=== PATIENT | female | born 1930 | race Caucasian/White ===

== ENCOUNTER 2020-03-01 16:15 | Inpatient (IN) | payer MEDICARE, OTHER ==
[2020-03-01] MEDS ORDERED: SODIUM CHLORIDE 0.9% 1,000 ML IV STA (17:02)
--- NOTE | 2020-03-01 17:11 | ED ---
General Adult HPI - General Chief complaint: Nausea/Vomiting/Diarrhea Stated complaint: Dehydration Time Seen by Provider: 03/01/20 16:40 Source: patient, family, RN notes reviewed Mode of arrival: ambulatory Limitations: no limitations - History of Present Illness Initial comments: Patient is a pleasant 89-year-old female presenting to the emergency department with concerns for dehydration. Patient does have diarrhea that has been worse for the past couple of weeks. Patient has a between 2 and 5 times per day. Daughter states this is a chronic problem for her and does see a primary care physician. Patient is in the process of being started on a new medication however they're trying to get preauthorization. Today patient was a little bit more weak than normal and did have a fall. No significant injury. No isolated area of weakness. No confusion. Patient and daughter are concerned regarding possible dehydration and would like fluids. No abdominal pain. No fever. No vomiting. Patient does have some decreased appetite - Related Data Allergies Allergy/AdvReac Type Severity Reaction Status Date / Time Sulfa (Sulfonamide Allergy Rash/Hives Verified 03/01/20 16:31 Antibiotics) Review of Systems ROS Statement: Those systems with pertinent positive or pertinent negative responses have been documented in the HPI. ROS Other: All systems not noted in ROS Statement are negative. Constitutional: Denies: fever Eyes: Denies: eye pain ENT: Denies: ear pain Respiratory: Denies: cough, dyspnea Cardiovascular: Denies: chest pain Endocrine: Reports: fatigue Gastrointestinal: Reports: nausea, diarrhea. Denies: abdominal pain, vomiting, constipation Genitourinary: Denies: dysuria Musculoskeletal: Denies: back pain Skin: Denies: rash Past Medical History Past Medical History: Hyperlipidemia Additional Past Medical History / Comment(s): parkinson's, hypotension, resltless legs History of Any Multi-Drug Resistant Organisms: None Reported Past Surgical History: Hysterectomy, Joint Replacement Additional Past Surgical History / Comment(s): L hip Past Psychological History: No Psychological Hx Reported Smoking Status: Never smoker Past Alcohol Use History: None Reported Past Drug Use History: None Reported General Exam Limitations: no limitations General appearance: alert, in no apparent distress Head exam: Present: normocephalic Eye exam: Present: normal appearance ENT exam: Present: normal oropharynx Neck exam: Present: normal inspection Respiratory exam: Present: normal lung sounds bilaterally Cardiovascular Exam: Present: regular rate, normal rhythm GI/Abdominal exam: Present: soft, normal bowel sounds. Absent: distended, tenderness, guarding, rebound, rigid, pulsatile mass Extremities exam: Present: normal inspection, full ROM Neurological exam: Present: alert. Absent: motor sensory deficit Expanded Motor strength exam: RUE: 5, LUE: 5, RLE: 5, LLE: 5 Psychiatric exam: Present: normal affect, normal mood Skin exam: Present: normal color Course Vital Signs 03/01/20 03/01/20 16:31 18:18 Temperature 98.2 F Pulse Rate 71 69 Respiratory 18 18 Rate Blood Pressure 110/52 O2 Sat by Pulse 92 L Oximetry Medical Decision Making - Medical Decision Making Patient reevaluated and resting comfortably in bed. Patient and family are unaware of any history of previous kidney problems. Case was discussed with , who will admit covering for hospital call. Patient and family are aware. - Lab Data Result diagrams: 03/01/20 18:08 03/01/20 18:08 Lab Results 03/01/20 03/01/20 Range/Units 18:08 18:08 WBC 5.1 (3.8-10.6) k/uL RBC 3.47 L (3.80-5.40) m/uL Hgb 10.7 L (11.4-16.0) gm/dL Hct 32.3 L (34.0-46.0) % MCV 92.9 (80.0-100.0) fL MCH 31.0 (25.0-35.0) pg MCHC 33.3 (31.0-37.0) g/dL RDW 12.7 (11.5-15.5) % Plt Count 144 L (150-450) k/uL Neutrophils % 67 % Lymphocytes % 9 % Monocytes % 6 % Eosinophils % 14 % Basophils % 0 % Neutrophils # 3.5 (1.3-7.7) k/uL Lymphocytes # 0.5 L (1.0-4.8) k/uL Monocytes # 0.3 (0-1.0) k/uL Eosinophils # 0.7 (0-0.7) k/uL Basophils # 0.0 (0-0.2) k/uL Sodium 140 (137-145) mmol/L Potassium 3.6 (3.5-5.1) mmol/L Chloride 111 H (98-107) mmol/L Carbon Dioxide 24 (22-30) mmol/L Anion Gap 5 mmol/L BUN 49 H (7-17) mg/dL Creatinine 1.62 H (0.52-1.04) mg/dL Est GFR (CKD-EPI)AfAm 33 (>60 ml/min/1.73 sqM) Est GFR (CKD-EPI)NonAf 28 (>60 ml/min/1.73 sqM) Glucose 103 H (74-99) mg/dL Calcium 9.1 (8.4-10.2) mg/dL Total Bilirubin 0.5 (0.2-1.3) mg/dL AST 22 (14-36) U/L ALT <6 (4-34) U/L Alkaline Phosphatase 48 (38-126) U/L Total Protein 6.2 L (6.3-8.2) g/dL Albumin 3.7 (3.5-5.0) g/dL Amylase 45 (30-110) U/L Lipase 50 (23-300) U/L Disposition Clinical Impression: Dehydration Disposition: ADMITTED IP TO THIS HOSP Is patient prescribed a controlled substance at d/c from ED?: No Referrals: Nonstaff,Physician [Primary Care Provider] - 1-2 days Decision Time: 19:12
[2020-03-01 18:15] LABS: Basophils % (A) 0 %; Eosinophils # (A) 0.7 k/uL (0-0.7); Eosinophils % (A) 14 %; HCT 32.3 % (34.0-46.0); HGB 10.7 gm/dL (11.4-16.0); Lymphocytes # (A) 0.5 k/uL (1.0-4.8); Lymphocytes % (A) 9 %; MCHC 33.3 g/dL (31.0-37.0); MCV 92.9 fL (80.0-100.0); Mean Platelet Volume 7.4; Monocytes # (A) 0.3 k/uL (0-1.0); Monocytes % (A) 6 %; Neutrophils # (A) 3.5 k/uL (1.3-7.7); Neutrophils % (A) 67 %; Platelet Count 144 k/uL (150-450); RBC 3.47 m/uL (3.80-5.40); RDW 12.7 % (11.5-15.5); WBC 5.1 k/uL (3.8-10.6)
[2020-03-01 18:25] LABS: ALT <6 U/L (4-34); AST 22 U/L (14-36); African American GFR (CKD) 33 (>60 ml/min/1.73 sqM); Albumin 3.7 g/dL (3.5-5.0); Alkaline Phosphatase 48 U/L (38-126); Amylase 45 U/L (30-110); Anion Gap 5 mmol/L; Blood Urea Nitrogen 49 mg/dL (7-17); Calcium 9.1 mg/dL (8.4-10.2); Carbon Dioxide 24 mmol/L (22-30); Chloride 111 mmol/L (98-107); Glucose 103 mg/dL (74-99); Non-African American GFR(CKD) 28 (>60 ml/min/1.73 sqM); Potassium 3.6 mmol/L (3.5-5.1); Sodium 140 mmol/L (137-145); Total Bilirubin 0.5 mg/dL (0.2-1.3); Total Protein 6.2 g/dL (6.3-8.2)
[2020-03-01] MEDS ORDERED: NALOXONE 0.4 MG/ML 1 ML VIAL IV PRN (19:13)
[2020-03-01] MEDS ORDERED: SODIUM CHLORIDE 0.9% 1,000 ML IV SCH (19:15)
--- NOTE | 2020-03-01 21:43 | P.HPIM ---
History of Present Illness H&P Date: 03/01/20 The patient was seen in the emergency room at 7:30 PM on 03/01 The patient is an 89-year-old female with a PMH of Parkinson's who presented to the ED for ongoing diarrhea. History supplemented by the patient's daughter at the bedside. She notes that the patient who is normally a resident of [facility] in [place] had a fall 3 weeks ago (with subsequent left ankle fracture, currently with a brace) after which she moved in with her family. The patient has been having ongoing watery diarrhea for the past 2 weeks, ranging from 5-10 bowel movements daily. Daughter notes that the patient did not have diarrhea prior to the 2 weeks. The patient denies abdominal pain, nausea, or vomiting. Unable to state any clear inciting foods. Denies mucus or blood in the stools. She notes that due to the ongoing diarrhea, the patient's diet has been limited and she feels weaker than usual. The patient notes that last night when she was trying to use the toilet, she did feel lightheaded after standing up and fell on her right side, without any head trauma. She denied loss of consciousness, weakness, chest pain, palpitations, or shortness of breath. Laboratory evaluation revealed BUN 49, creatinine 1.62, with platelet 144, hemoglobin 10.7, sodium 140, and potassium 3.6. Patient is being admitted for dehydration and kidney injury. Review of Systems Pertinent positives and negatives as discussed in HPI, a complete review of systems was performed and all other systems are negative. Past Medical History Past Medical History: Hyperlipidemia Additional Past Medical History / Comment(s): parkinson's, hypotension, resltless legs History of Any Multi-Drug Resistant Organisms: None Reported Past Surgical History: Hysterectomy, Joint Replacement Additional Past Surgical History / Comment(s): L hip Past Psychological History: No Psychological Hx Reported Smoking Status: Never smoker Past Alcohol Use History: None Reported Past Drug Use History: None Reported Medications and Allergies Allergies Allergy/AdvReac Type Severity Reaction Status Date / Time Sulfa (Sulfonamide Allergy Rash/Hives Verified 03/01/20 16:31 Antibiotics) Physical Exam Vitals: Vital Signs Temp Pulse Resp BP Pulse Ox 03/01/20 19:38 82 18 119/61 92 L 03/01/20 18:18 69 18 110/52 92 L 03/01/20 16:31 98.2 F 71 18 Intake and Output 03/01/20 03/01/20 03/01/20 06:59 14:59 22:59 Other: Weight 52.163 kg General: non toxic, no distress, appears at stated age, normal weight Derm: no unusual rashes/lesions no unusual ecchymoses, warm, dry Head: atraumatic, normocephalic, symmetric Eyes: EOMI, no lid lag, anicteric sclera, pupils equal round reactive to light ENT: Nose and ears atraumatic, no thrush, no pharyngeal erythema Neck: No thyromegaly, no cervical lymphadenopathy, trachea midline, supple Mouth: no lip lesion, mucus membranes moist Cardiovascular: S1S2 reg, no murmur, positive posterior tibial pulse bilateral, no edema, capillary refill less than 2 seconds Lungs: CTA bilateral, no rhonchi, no rales , no accessory muscle use Abdominal: soft, nontender to palpation, no guarding, no appreciable organomegaly, normal bowel sounds Ext: no gross muscle atrophy, muscle strength 4 out of 5 in all 4 extremities grossly, no contractures, L ankle cast Neuro: Akathisia, CN II-XI grossly intact, light touch intact all 4 extremities, finger to nose within normal limits, Psych: Alert, oriented, appropriate affect Results CBC & Chem 7: 03/01/20 18:08 03/01/20 18:08 Labs: Abnormal Lab Results - Last 24 Hours (Table) 03/01/20 03/01/20 Range/Units 18:08 18:08 RBC 3.47 L (3.80-5.40) m/uL Hgb 10.7 L (11.4-16.0) gm/dL Hct 32.3 L (34.0-46.0) % Plt Count 144 L (150-450) k/uL Lymphocytes # 0.5 L (1.0-4.8) k/uL Chloride 111 H (98-107) mmol/L BUN 49 H (7-17) mg/dL Creatinine 1.62 H (0.52-1.04) mg/dL Glucose 103 H (74-99) mg/dL Total Protein 6.2 L (6.3-8.2) g/dL Assessment and Plan Plan: Intractable diarrhea -Start Loperamide -Consider GI consult if no improvement -IV fluids -Clear liquid diet Kidney injury, acute versus chronic -Continue with IV fluids -Monitor BMP Normocytic anemia and thrombocytopenia, no baseline available -Monitor for now History of Parkinson's -Continue with home meds DVT prophylaxis -Heparin subq The patient is admitted with an anticipated less than 2 midnight stay for evaluation of diarrhea CODE STATUS: Full Code Discussed with: Patient, daughter Anticipated discharge date: 1-[address]: Home A total of 40 minutes was spent on the care of this complex patient more than 50% of the time was spent in counseling and care coordination.
[2020-03-01] MEDS: DEXTROSE 5%-0.9% NACL 1,000 ML IV SCH (22:13)
[2020-03-01] MEDS: LOPERAMIDE 2 MG CAP PO SCH (22:13)
[2020-03-02 06:09] LABS: HCT 31.3 % (34.0-46.0); HGB 10.2 gm/dL (11.4-16.0); MCH 30.5 pg (25.0-35.0); MCHC 32.4 g/dL (31.0-37.0); Mean Platelet Volume 7.8; Platelet Count 120 k/uL (150-450); RBC 3.33 m/uL (3.80-5.40); RDW 12.8 % (11.5-15.5); WBC 4.6 k/uL (3.8-10.6)
[2020-03-02 06:16] LABS: Potassium 3.3 mmol/L (3.5-5.1)
[2020-03-02] MEDS ORDERED: POTASSIUM CHLORIDE ER 20 MEQ TAB.ER PO STA (07:55)
[2020-03-02] MEDS: LOPERAMIDE 2 MG CAP PO SCH ×4 (09:21→20:59)
[2020-03-02] MEDS: HEPARIN SODIUM,PORCINE 5,000 UNIT/ML 1 ML VIAL SQ SCH ×2 (09:32→20:59)
[2020-03-02] MEDS: DEXTROSE 5%-0.9% NACL 1,000 ML IV SCH ×2 (09:33→16:07)
[2020-03-02] MEDS ORDERED: MIDODRINE 5 MG TAB PO PRN (10:44)
[2020-03-02] MEDS ORDERED: DIPHENOX-ATROP 2.5-0.025 MG 1 EACH TAB PO PRN (10:44)
--- NOTE | 2020-03-02 10:44 | P.PN ---
Subjective Progress Note Date: 03/02/20 Principal diagnosis: Diarrhea Patient continues to have diarrhea. She denies abdominal pain, nausea or vomiting. No fevers or chills. Objective - Vital Signs Vital signs: Vital Signs Temp 97.7 F 03/02/20 07:00 Pulse 74 03/02/20 07:00 Resp 16 03/02/20 07:00 BP 129/62 03/02/20 07:00 Pulse Ox 94 L 03/02/20 07:00 Intake & Output 03/01/20 03/02/20 03/02/20 18:59 06:59 18:59 Weight 52.163 kg 52.163 kg Other: # Voids 1 # Bowel Movements 3 - Exam Constitutional: No acute distress, conversant, pleasant Eyes:Anicteric sclerae, moist conjunctiva, no lid-lag, PERRLA, ENMT: Oropharynx clear, no erythema, exudates Neck: Supple, FROM, no masses, or JVD, No carotid bruits, No thyromegaly Lungs: Clear to auscultation, Clear to percussion, Normal respiratory effort, no accessory muscle use Cardiovascular: Heart regular in rate and rhythm, No murmurs, gallops, or rubs, No peripheral edema Abdominal: Soft, Nontender, no guarding, rebound or rigidity, Normoactive bowel sounds, No hepatomegaly, No splenomegaly, No palpable mass Skin: Normal temperature, tone, texture, turgor, no induration, No subcutaneous nodules, No rash, lesions, No ulcers Extremities: No digital cyanosis, No clubbing, Pedal pulses intact and symmetrical, Radial pulses intact and symmetrical, No calf tenderness Psychiatric: Alert and oriented to person, place and time, appropriate affect, intact judgement Neuro: Muscles Strength 5/5 in all 4 extremities, Sensation to light touch grossly present throughout, Cranial nerves II-XII grossly intact, no focal sensory deficits - Labs CBC & Chem 7: 03/02/20 05:52 03/02/20 05:52 Labs: Abnormal Lab Results - Last 24 Hours (Table) 03/01/20 03/01/20 03/02/20 Range/Units 18:08 18:08 05:52 RBC 3.47 L (3.80-5.40) m/uL Hgb 10.7 L (11.4-16.0) gm/dL Hct 32.3 L (34.0-46.0) % Plt Count 144 L (150-450) k/uL Lymphocytes # 0.5 L (1.0-4.8) k/uL Potassium 3.3 L (3.5-5.1) mmol/L Chloride 111 H 116 H (98-107) mmol/L Carbon Dioxide 21 L (22-30) mmol/L BUN 49 H 35 H (7-17) mg/dL Creatinine 1.62 H 1.14 H (0.52-1.04) mg/dL Glucose 103 H (74-99) mg/dL Calcium 8.0 L (8.4-10.2) mg/dL Total Protein 6.2 L (6.3-8.2) g/dL 03/02/20 Range/Units 05:52 RBC 3.33 L (3.80-5.40) m/uL Hgb 10.2 L (11.4-16.0) gm/dL Hct 31.3 L (34.0-46.0) % Plt Count 120 L (150-450) k/uL Lymphocytes # (1.0-4.8) k/uL Potassium (3.5-5.1) mmol/L Chloride (98-107) mmol/L Carbon Dioxide (22-30) mmol/L BUN (7-17) mg/dL Creatinine (0.52-1.04) mg/dL Glucose (74-99) mg/dL Calcium (8.4-10.2) mg/dL Total Protein (6.3-8.2) g/dL Assessment and Plan Plan: Intractable diarrhea, C. diff negative -Continue Lomotil -GI consult -IV fluids -Clear liquid diet TORY -Cr improved -Continue with IV fluids -Monitor BMP Hypokalemia: Replace and follow in am Normocytic anemia and thrombocytopenia, no baseline available -Monitor History of Parkinson's -Continue with home meds DVT prophylaxis -Low risk Anticipated discharge date: 1-[address]: Home
[2020-03-02] MEDS: ENTACAPONE 200 MG TAB PO SCH ×2 (13:04→17:56)
[2020-03-02] MEDS: CARBIDOPA-LEVODOPA 25-100 MG 1 EACH TAB PO SCH ×2 (13:05→17:56)
[2020-03-02] MEDS: CHOLESTYRAMINE (WITH SUGAR) 4 GM PACKET PO SCH ×2 (16:07→17:57)
[2020-03-02] MEDS: GABAPENTIN 300 MG CAP PO SCH ×2 (16:18→20:59)
[2020-03-02 17:16] LABS: Appearance,Urine Clear (Clear); Bacteria,Urine Rare /hpf; Bilirubin,Urine Negative (Negative); Blood,Urine Small (Negative); Color,Urine Dark Yellow; Glucose,Urine (UA) Negative (Negative); Hyaline Casts,Urine 1 /lpf (0-2); Ketones,Urine Negative (Negative); Leukocyte Esterase,Urine Trace (Negative); Mucus,Urine Rare /hpf; Nitrite,Urine Negative (Negative); PH, Urine 5.5 (5.0-8.0); Protein,Urine 1+ (Negative); RBC,Urine 34 /hpf (0-5); Specific Gravity,Urine 1.017 (1.001-1.035); Urobilinogen,Urine <2.0 mg/dL (<2.0); WBC,Urine 11 /hpf (0-5)
[2020-03-02] MEDS: PRAMIPEXOLE 0.5 MG TAB PO SCH ×2 (17:56→21:24)
[2020-03-03] MEDS: DEXTROSE 5%-0.9% NACL 1,000 ML IV SCH ×2 (02:34→18:00)
--- NOTE | 2020-03-03 03:03 | CONS ---
CONSULTATION DATE OF DICTATION: 03/02/2020 REASON FOR CONSULTATION: Chronic diarrhea. HISTORY OF PRESENT ILLNESS: The patient is a 89-year-old pleasant white female with history of Parkinson disease, was brought into the emergency room by her daughter for evaluation of chronic diarrhea on and off for the last 2 years duration. The patient has been having bowel movements anywhere from 5 to 10 a day which are loose to watery in consistency. She has been having these symptoms on and off while she was living in [place]. According to the patient about 2 years ago she underwent a colonoscopy and was diagnosed with irritable bowel syndrome. She was subsequently started on antimotility agents. Patient was living in an independent living facility. However, recently had a fall and had a fracture and hence she was brought in to this area to live with her family. As per the daughter, the patient has not been having any nausea, vomiting. She does not think she lost any weight. She was advised to be on a gluten free diet as well as lactose-free diet, but does not recall if she was checked for celiac disease in the past. She denies any abdominal pain. No rectal bleeding. No recent antibiotic use. No fever, chills, or night sweats. She was started on Lomotil 2 weeks ago one tablet 4 times daily with not much help. PAST MEDICAL HISTORY: Hypertension, hyperlipidemia, Parkinson disease, restless legs syndrome. PAST SURGICAL HISTORY: Hysterectomy, left hip replacement. SOCIAL HISTORY: No smoking. No alcohol use. MEDICATIONS: Medications at home include Sinemet, Lomotil, Mirapex, midodrine, Neurontin, Vytorin. FAMILY HISTORY: Unremarkable. ALLERGIES: SULFA. REVIEW OF SYSTEMS: CARDIOPULMONARY: She denies any chest pain or shortness of breath. GENITOURINARY: No dysuria or hematuria. MUSCULOSKELETAL: Unremarkable. SKIN: Unremarkable. ENDOCRINE: Unremarkable. PSYCHIATRIC: Unremarkable. NEUROLOGY: History of Parkinson disease. ENT/VISION: Unremarkable. GI: As mentioned above. CONSTITUTIONAL: No recent weight loss. No fever, chills, night sweats. PHYSICAL EXAMINATION: She appears comfortable. No apparent distress. Vital signs are stable. Blood pressure is 127/53, pulse rate 80, temperature 97.9. HEENT: Examination unremarkable. Conjunctivae pink. Sclerae anicteric. Oral cavity, no lesions. NECK: No JVD or lymph node enlargement. CHEST: Clear to auscultation. HEART: Regular rate and rhythm. ABDOMEN: Soft. Bowel sounds are positive. No organomegaly. EXTREMITIES: No pedal edema. SKIN: No rashes. NEURO: She is alert and oriented x3. No focal deficits. LABS: WBC 5.1, hemoglobin 10.7, platelets are 144. Basic metabolic panel is within normal limits. BUN is 49 and creatinine 1.62. Stool for C difficile toxin is negative. IMPRESSION: Chronic diarrhea on and off for the last 2 years duration. Patient had extensive workup while she was in [place] and according to her, she had a colonoscopy done 2 years ago and subsequent workup and was diagnosed with irritable bowel syndrome. She was advised to be on a lactose-free diet as well as a gluten-free diet, but patient believes that it has not helped her. No records available at the time of this dictation. For the last 2 weeks, her diarrhea has been progressively getting worse. She is having bowel movements anywhere from 5-10 a day which are loose to watery in consistency, but no bleeding. She denies any abdominal pain. No recent weight loss. Recently she was started on Lomotil one tablet 4 times daily with not much help. At this time, will rule out infectious colitis superimposed irritable bowel syndrome. RECOMMENDATIONS: 1. Stool studies. 2. Add Questran one packet twice daily. 3. Continue with Lomotil one tablet 4 times daily. 4. Obtain celiac panel. 5. Advance diet as tolerated. 6. We will follow with you closely. Thank you for this consultation. MMODL / IJN: [id number] /
[2020-03-03] MEDS: HEPARIN SODIUM,PORCINE 5,000 UNIT/ML 1 ML VIAL SQ SCH ×2 (08:09→21:42)
[2020-03-03] MEDS: LOPERAMIDE 2 MG CAP PO SCH ×4 (08:10→21:42)
[2020-03-03] MEDS: ATORVASTATIN 10 MG TAB PO SCH (08:10)
[2020-03-03] MEDS: CHOLESTYRAMINE (WITH SUGAR) 4 GM PACKET PO SCH ×3 (08:10→18:04)
[2020-03-03] MEDS: GABAPENTIN 300 MG CAP PO SCH ×3 (08:10→21:42)
[2020-03-03] MEDS: EZETIMIBE 10 MG TAB PO SCH (08:10)
[2020-03-03] MEDS: PRAMIPEXOLE 0.5 MG TAB PO SCH ×3 (08:10→21:43)
[2020-03-03] MEDS: CARBIDOPA-LEVODOPA 25-100 MG 1 EACH TAB PO SCH ×3 (08:11→18:00)
[2020-03-03] MEDS: ENTACAPONE 200 MG TAB PO SCH ×3 (08:11→18:00)
[2020-03-03 08:30] LABS: Calcium 7.3 mg/dL (8.4-10.2); Magnesium 1.9 mg/dL (1.6-2.3); Phosphorus 1.9 mg/dL (2.5-4.5); Potassium 3.4 mmol/L (3.5-5.1)
[2020-03-03 09:14] LABS: Gliadin AB IgA, Deaminated NEGATIVE (NEGATIVE); Gliadin AB IgA, Unit 1.4 U/mL; Gliadin AB IgG, Deaminated NEGATIVE (NEGATIVE)
[2020-03-03] MEDS ORDERED: POTASSIUM CHLORIDE ER 20 MEQ TAB.ER PO STA (11:00)
--- NOTE | 2020-03-03 11:03 | P.PN ---
Subjective Progress Note Date: 03/03/20 Principal diagnosis: Diarrhea Nursing reported that patient had a rough night last night with severe diarrhea. She continues to have the runs all through the night. No nausea or vomiting. No significant abdominal pain. Objective - Vital Signs Vital signs: Vital Signs Temp 97.6 F 03/03/20 07:00 Pulse 72 03/03/20 07:00 Resp 16 03/03/20 07:00 BP 135/69 03/03/20 07:00 Pulse Ox 93 L 03/03/20 07:00 Intake & Output 03/02/20 03/03/20 03/03/20 18:59 06:59 18:59 Intake Total 1000 400 Balance 1000 400 Weight 52.163 kg Intake: Intake, IV Titration 1000 300 Amount Dextrose 5%-0.9% NaCl 1, 1000 300 000 ml @ 100 mls/hr IV . Q10H DARIEL Rx#:[id number] Oral 100 Other: Voiding Method Bedside Commode Bedside Commode # Voids 3 # Bowel Movements 1 3 - Exam Constitutional: No acute distress, conversant, pleasant Eyes:Anicteric sclerae, moist conjunctiva, no lid-lag, PERRLA, ENMT: Oropharynx clear, no erythema, exudates Neck: Supple, FROM, no masses, or JVD, No carotid bruits, No thyromegaly Lungs: Clear to auscultation, Clear to percussion, Normal respiratory effort, no accessory muscle use Cardiovascular: Heart regular in rate and rhythm, No murmurs, gallops, or rubs, No peripheral edema Abdominal: Soft, Nontender, no guarding, rebound or rigidity, Normoactive bowel sounds, No hepatomegaly, No splenomegaly, No palpable mass Skin: Normal temperature, tone, texture, turgor, no induration, No subcutaneous nodules, No rash, lesions, No ulcers Extremities: No digital cyanosis, No clubbing, Pedal pulses intact and symmetrical, Radial pulses intact and symmetrical, No calf tenderness Psychiatric: Alert and oriented to person, place and time, appropriate affect, intact judgement Neuro: Muscles Strength 5/5 in all 4 extremities, Sensation to light touch grossly present throughout, Cranial nerves II-XII grossly intact, no focal sensory deficits - Labs CBC & Chem 7: 03/02/20 05:52 03/03/20 07:25 Labs: Abnormal Lab Results - Last 24 Hours (Table) 03/02/20 03/03/20 Range/Units 16:48 07:25 Potassium 3.4 L (3.5-5.1) mmol/L Chloride 119 H (98-107) mmol/L BUN 19 H (7-17) mg/dL Calcium 7.3 L (8.4-10.2) mg/dL Phosphorus 1.9 L (2.5-4.5) mg/dL Urine Protein 1+ H (Negative) Urine Blood Small H (Negative) Ur Leukocyte Esterase Trace H (Negative) Urine RBC 34 H (0-5) /hpf Urine WBC 11 H (0-5) /hpf Urine Bacteria Rare H (None) /hpf Urine Mucus Rare H (None) /hpf Microbiology - Last 24 Hours (Table) 03/02/20 16:48 Urine Culture - Preliminary Urine,Voided 03/02/20 12:00 Stool Culture - Preliminary Stool Assessment and Plan Plan: Intractable diarrhea, C. diff negative -Continue Lomotil -GI consulted -Celiac disease workup negative -Infectious workup including C. diff so far negative -IV fluids -Clear liquid diet TORY -Resolved Hypokalemia: Replace and follow in am Normocytic anemia and thrombocytopenia, no baseline available -Monitor History of Parkinson's -Continue with home meds DVT prophylaxis -Low risk Anticipated discharge date: 1-[address]: Home
[2020-03-03] MEDS: POTAS-SOD-PHOS 278-164-250 MG 1 EACH PACKET PO SCH ×3 (11:35→21:43)
[2020-03-03 12:34] VITALS: BMI 21.0
--- NOTE | 2020-03-03 16:49 | PN ---
PROGRESS NOTE DATE OF DICTATION: 03/03/2020 This patient is an 89-year-old pleasant white female admitted to the hospital with severe diarrhea for the last 2 years' duration. Diarrhea got much worse in the last 2 weeks. She had stool studies which were all negative, including C difficile toxin and lactoferrin. Celiac panel was negative. She was started on Lomotil 1 tablet 4 times daily as well as Questran one packet twice daily. She is feeling much better. This morning she had only 3 bowel movements so far which are soft in consistency. No abdominal pain. No nausea, vomiting. No fever, chills or night sweats. PHYSICAL EXAMINATION: Appears comfortable. No apparent distress. VITAL SIGNS: Stable. Blood pressure is 135/69, pulse rate 72, temperature 97.6. HEENT examination unremarkable. Conjunctivae pink. Sclerae anicteric. Oral cavity no lesions. NECK: No JVD or lymph node enlargement. CHEST: Clear to auscultation. HEART: Regular rate and rhythm. ABDOMEN: Soft. Bowel sounds are positive. No organomegaly. EXTREMITIES: No pedal edema. NEUROLOGIC: Alert and oriented to name and place. LABS: Labs from today: basic metabolic panel is within normal limits. Potassium was 3.4. Stool lactoferrin negative. C difficile toxin negative. Ova and parasites negative. Celiac panel is negative. IMPRESSION: Chronic diarrhea of 2 years' duration. Patient was extensively investigated in [place], [place], and all her workup 2 years ago, including a colonoscopy, was negative. Recent stool studies are negative. Most likely we are dealing with IBS. RECOMMENDATIONS: 1. Continue with Imodium 2 tablets 4 times daily as needed. 2. Questran one packet 4 times daily. 3. Stop Lomotil because of some confusion. 4. Repeat labs in the morning. Will follow with you closely. Thank you for this consultation. MMODL / IJN: [id number] /
[2020-03-03] MEDS ORDERED: IPRATROPIUM-ALBUTEROL 3 ML NEB INHALATION STA (21:53)
--- NOTE | 2020-03-03 23:07 | XR ---
EXAMINATION TYPE: XR chest 1V portable DATE OF EXAM: 03/03/2020 COMPARISON: NONE HISTORY: Short of breath TECHNIQUE: Single view FINDINGS: Heart is probably enlarged. There is some pulmonary vascular congestion. There is pulmonary interstitial mild edema. There is some blunting of the costophrenic angles. IMPRESSION: Mild congestive heart failure with small pleural effusions.
[2020-03-04] MEDS: DEXTROSE 5%-0.9% NACL 1,000 ML IV SCH (03:28)
[2020-03-04 07:51] VITALS: BP 155/80; PULSE 87; RESP 20; TEMP 97.9
[2020-03-04] MEDS: HEPARIN SODIUM,PORCINE 5,000 UNIT/ML 1 ML VIAL SQ SCH ×2 (08:10→08:19)
[2020-03-04] MEDS: PRAMIPEXOLE 0.5 MG TAB PO SCH (08:10)
[2020-03-04] MEDS: POTAS-SOD-PHOS 278-164-250 MG 1 EACH PACKET PO SCH (08:10)
[2020-03-04] MEDS: CHOLESTYRAMINE (WITH SUGAR) 4 GM PACKET PO SCH (08:10)
[2020-03-04] MEDS: ENTACAPONE 200 MG TAB PO SCH ×2 (08:10→11:45)
[2020-03-04] MEDS: GABAPENTIN 300 MG CAP PO SCH (08:10)
[2020-03-04] MEDS: CARBIDOPA-LEVODOPA 25-100 MG 1 EACH TAB PO SCH ×2 (08:10→11:45)
[2020-03-04] MEDS: ATORVASTATIN 10 MG TAB PO SCH (08:10)
[2020-03-04] MEDS: EZETIMIBE 10 MG TAB PO SCH (08:10)
[2020-03-04] MEDS: LOPERAMIDE 2 MG CAP PO SCH ×2 (08:10→11:45)
== END 2020-03-04 13:09 | disposition home or self-care (01) | DRG 392 ==
LOC: EC 16:15 → 5NMEDONC 19:13 → 4SSUR 03-02 17:04 → OBSVTOIN 03-03 09:40
PROVIDERS: ADMIT Internal Medicine; ATTEND Internal Medicine
DX: K58.0 Irritable bowel syndrome with diarrhea (principal); N17.9 Acute kidney failure, unspecified; D69.6 Thrombocytopenia, unspecified; G20 Parkinson's disease; I95.9 Hypotension, unspecified; D64.9 Anemia, unspecified; E86.0 Dehydration; E78.5 Hyperlipidemia, unspecified; Z20.828 Contact with and (suspected) exposure to other viral communicable diseases; S82.892D Other fracture of left lower leg, subsequent encounter for closed fracture with routine healing; I10 Essential (primary) hypertension; E87.6 Hypokalemia; G25.81 Restless legs syndrome; Z90.710 Acquired absence of both cervix and uterus; Z96.642 Presence of left artificial hip joint; Z98.890 Other specified postprocedural states; Z91.81 History of falling; Z88.2 Allergy status to sulfonamides; W18.30XD Fall on same level, unspecified, subsequent encounter
CPT/HCPCS: 36415; 71045; 80048; 80053; 81001; 82150; 83516; 83630; 83690; 83735; 83993; 84100; 85025; 85027; 85652; 86140; 87045; 87046; 87077; 87086; 87186; 87324; 87328; 87329; 94640; 96360; 96361; 96372; 99285